=== PATIENT | female | born 1945 | race Caucasian/White ===

== ENCOUNTER → 2017-03-19 | Outpatient (CLI) | payer MEDICARE ==
[~2017-03-19] MED LIST: ACET300T2 PO; ASPI81TA23 PO; FOLI800T PO; INDO75CA3 PO; METH2.5T PO; PROC5TAB PO; REST0.05 EACH EYE
== END ==
LOC: CPRE 09:46
PROVIDERS: ATTEND Orthopaedic Surgery
DX: Z01.818 Encounter for other preprocedural examination (principal)

== ENCOUNTER 2017-04-04 08:30 | Inpatient (IN) | payer MEDICARE ==
[~2017-04-04] VITALS: Ht 157.5 cm; Wt 56.6 kg
--- NOTE | 2017-04-04 09:12 | HHI.DCPOC ---
Discharge Care Plan Diagnosis: (1) Osteoarthritis, shoulder (2) Status post total shoulder arthroplasty Your Health Problems Are: Difficulty with ADL Goals to Promote Your Health * To prevent worsening of your condition and complications * To maintain your health at the optimal level Directions to Meet Your Goals Take your medications as prescribed Follow your dietary instruction Follow activity as directed Keep your appointments as scheduled Take your immunizations and boosters as scheduled If your symptoms worsen call your PCP, if no PCP go to Urgent Care Center or Emergency Room Smoking is Dangerous to Your Health. Avoid second hand smoke Call the 24-hour hour crisis hotline for domestic abuse at Preston Rodriguez Apr 04, 2017 09:12
--- NOTE | 2017-04-04 09:14 | HHI.FF ---
Face to Face Verification Diagnosis: (1) Osteoarthritis, shoulder (2) Status post total shoulder arthroplasty Occupational Therapy Left UE Weight Bearing: WB as tolerated Left UE Range of Motion: Active ROM Nursing Dressing Changes: Do not change dressing Additional Instructions 1st dressing change in the office I have seen patient Vianney Burdick on 04/04/17. My clinical findings support the need for the requested home health care services because: Limited ability to care for self I certify that my clinical findings support that this patient is homebound because: Post-op weakness Preston Rodriguez Apr 04, 2017 09:14
[2017-04-04] MEDS ORDERED: CHLORHEXIDINE GLUCONATE 4% SOLN 120 ML BTL TOPICAL SCH (09:45)
[2017-04-04] MEDS ORDERED: ceFAZolin 2 GM PREMIX 50 ML IV SCH (09:45)
[2017-04-04] MEDS ORDERED: POVIDONE IODINE 7.5% SCRUB 118 ML BOTTLE TOPICAL SCH (09:45)
[2017-04-04] MEDS ORDERED: PRED5TAB PO (09:54)
[2017-04-04] MEDS ORDERED: VITA20003 PO (09:54)
[2017-04-04] MEDS ORDERED: VITA100021 SL (09:54)
[2017-04-04] MEDS ORDERED: CALCTAB19 PO (09:54)
[2017-04-04] MEDS ORDERED: METOPROLOL TARTRATE 25 MG TAB PO PRN (10:00)
[2017-04-04] MEDS ORDERED: SODIUM CHLORID 0.9% 500 ML IV PRN (10:00)
[2017-04-04] MEDS ORDERED: LACTATED RINGER'S 1000 ML IV PRN (10:00)
[2017-04-04] MEDS ORDERED: CHLORHEXIDINE GLUCONATE 2 % 1 PACK (2 CLOTHS) TOPICAL PRN (10:00)
[2017-04-04] MEDS ORDERED: POVIDONE IODINE 5% (ANTISEPSIS KIT) 4 APPLICATIONS EACH NARE PRN (10:00)
[2017-04-04] MEDS ORDERED: MIDAZOLAM HCL 2 MG/2 ML VIAL ONE (10:49)
[2017-04-04] MEDS ORDERED: LIDOCAINE HCL 1% PF 5 ML AMPULE ONE (10:49)
[2017-04-04] MEDS ORDERED: BUPIVACAINE HCL PF 0.5% 30 ML VIAL ONE (10:49)
[2017-04-04] MEDS ORDERED: GENTAMICIN SULFATE 80 MG/2 ML VIAL ONE (11:22)
[2017-04-04] MEDS ORDERED: ROCURONIUM INJ 50 MG/5 ML SYRINGE IV PUSH ONE (12:00)
[2017-04-04] MEDS ORDERED: PROPOFOL 200 MG/20 ML AMP IV ONE (12:00)
[2017-04-04] MEDS ORDERED: NEOSTIGMINE 5 MG/5 ML SYRINGE IV PUSH ONE (12:00)
[2017-04-04] MEDS ORDERED: ONDANSETRON HCL 4 MG/2 ML VIAL IV ONE (12:00)
[2017-04-04] MEDS ORDERED: ePHEDrine/NS 25 MG/5 ML SYRINGE IV ONE (12:00)
[2017-04-04] MEDS ORDERED: PHENYLEPHRINE HCL 10 MG/ML VIAL IV ONE (12:00)
[2017-04-04] MEDS ORDERED: GLYCOPYRROLATE 1 MG/5 ML SYRINGE IV PUSH ONE (12:00)
[2017-04-04] MEDS ORDERED: VANCOMYCIN HCL 1000 MG VIAL ONE (13:17)
[2017-04-04] MEDS ORDERED: SODIUM CHLORIDE 0.9% IV ONE ×2 (13:30→16:30)
[2017-04-04] MEDS ORDERED: TRANEXAMIC ACID IV ONE ×2 (13:30→16:30)
[2017-04-04] MEDS ORDERED: MIDAZOLAM HCL 5 MG/5 ML VIAL IV ONE (13:30)
[2017-04-04] MEDS ORDERED: NALOXONE HCL 0.4 MG/ML AMP IV PUSH PRN (14:45)
[2017-04-04] MEDS ORDERED: MAGNESIUM HYDROXIDE SUSP 30 ML CUP PO PRN (14:45)
[2017-04-04] MEDS ORDERED: diphenhydrAMINE HCL 25 MG CAP PO PRN (14:45)
[2017-04-04] MEDS ORDERED: MORPHINE SULFATE 4 MG/ML INJ IV PUSH PRN (14:45)
[2017-04-04] MEDS ORDERED: Post-op Orders (for Pharmacy) XX ONE (14:45)
[2017-04-04] MEDS ORDERED: MISCELLANEOUS NURSING INFORMATION XX PRN (14:45)
[2017-04-04] MEDS ORDERED: MISCELLANEOUS PHARMACY INFORMATION XX ONE (14:45)
[2017-04-04] MEDS ORDERED: PROCHLORPERAZINE MALEATE 5 MG TAB PO PRN (14:45)
[2017-04-04] MEDS ORDERED: ONDANSETRON HCL 4 MG/2 ML VIAL IVP PRN (14:45)
[2017-04-04] MEDS ORDERED: ACETAMINOPHEN/HYDROcodone 325 MG/5 MG TAB PO PRN (14:45)
--- NOTE | 2017-04-04 14:57 | PD.OP ---
cc: Alfonso Matute MD Operative Report Date of Surgery: Apr 04, 2017 Preoperative Diagnosis: Left shoulder severe osteoarthritis Postoperative Diagnosis: Same Procedure: Left total shoulder arthroplasty Anesthesia: Regional and general Surgeon: Alfonso Matute Medical Records Clerk(s): GENARO Mena The surgical procedure was assisted by my Advanced Registered Nurse Practitioner. My ETHNIC ORIGINS TEACHER presence was necessary throughout this case for the manipulation and positioning of the surgical extremity. My ETHNIC ORIGINS TEACHER was assisting me throughout the duration of this procedure. The skill set of an Advance Registered Nurse Practitioner was medically necessary to complete this procedure. During the surgical case, the technology education teacher was working at the back table and the Advance Registered Nurse Practitioner was directly assisting me. Operation and Findings: IMPLANT DESCRIPTION: 1. Arthrex universe glenoid portal with keel, small 2. Arthrex universe 2 humeral stem, 8 mm 4. Arthrex universe 2 humeral head 44/19 ESTIMATED BLOOD LOSS: 150 cc. JUSTIFICATION FOR PROCEDURE: The patient has end-stage osteoarthritis to the shoulder. There is an attached conservative measures pathway form in the chart that describes the nonoperative measures that were undertaken prior to consideration of surgical management. The patient understood the risks and benefits of surgical management. See my office notes for further details. PROCEDURE: The patient was brought back to the operative theatre. Adequate anesthesia was obtained. The patient received intravenous vancomycin and Ancef. The patient was carefully placed on the operative table. She was placed in a beachchair position. Her head and neck were secured in a neutral position. We made standard incision into the anterior aspect of the shoulder and dissected through the deltopectoral interval. The cephalic vein was protected during the case and remained intact. We identified the clavipectoral fascia. We incised through it. We placed retractors on the lateral aspect of the conjoined tendon. We identified the subscapularis which was in good condition. The supraspinatus tendon was very thinned but intact. We made an incision through the tendinous portion of the subscapularis to enter the joint. We found a small to moderate joint effusion and severe osteoarthritis. We used multiple #2 fiber wires to tag the subscapularis medially. We extended the incision slightly through the rotator interval. We identified that there was a full-thickness tear of the biceps tendon which was retracted. We resected the stump. We placed a guidewire in the proximal portion of the humeral head. This allowed us to put a guide on the head with the appropriate amount of retroversion as determined by the forearm to 90 using the guides. We resected the humeral head at the appropriate inclination of the guide. We used hand reaming of the proximal humerus followed by sequential broaching up to a size 8 which fit very nicely. We removed osteophytes around the humeral head especially posteriorly and inferiorly. We identified the glenoid to expose it. We used a guidewire in the central portion. We sized this to a small. We reamed the glenoid to the appropriate depth. We placed the 2 drill holes off of the guide. This helped discrete the keel using a rongeur and punch. We trialed the glenoid component. We then cemented the glenoid in standard fashion. Excess cement was removed. We placed the final stem in to the humerus. We impacted this. And then we tightened the 2 screws which allow for minor alterations in inclination and version to allow the stem to sit perfectly flat on the previous osteotomy site. We trialed the head. We ended up going with a slightly thicker head which gave excellent stability as tested anteriorly inferiorly and posteriorly. We irrigated and then placed the final head into position. We repaired the subscapularis tendon with the FiberWire's. We also repaired the small interval incision. We closed skin with 2-0 Vicryl followed by Dermabond mesh. Postoperative plan is to follow standard total shoulder replacement protocol. Alfonso Matute MD Apr 04, 2017 14:57
[2017-04-04] MEDS ORDERED: NORC5TAB PO (14:58)
[2017-04-04] MEDS ORDERED: DO NOT ADM ANY ANTICOAGULANT DRUGS PRN (15:22)
--- NOTE | 2017-04-04 16:44 | RADRPT ---
EXAM DATE/TIME: 04/04/2017 15:37 [facility] COMPARISON: No previous studies available for comparison. INDICATIONS : Post op left shoulder. MEDICAL HISTORY : None. SURGICAL HISTORY : None. ENCOUNTER: Initial ACUITY: 1 day PAIN SCORE: Non-responsive. LOCATION: Left shoulder. FINDINGS: Status post shoulder arthroplasty. Anatomic alignment. Lung apex clear CONCLUSION: Anatomic alignment Garcia Emerson MD FACR on April 04, 2017 at 16:41 Board Certified Radiologist. This report was verified electronically.
[2017-04-04 17:30] VITALS: BP 100/73; PULSE 79; RESP 17; TEMP 96.6; O2SAT 100
[2017-04-04] MEDS: ACETAMINOPHEN/HYDROcodone 325 MG/5 MG TAB PO PRN ×2 (18:05→22:20)
[2017-04-04] MEDS: DOCUSATE SODIUM 50 MG/SENNA 8.6 MG TAB PO SCH (19:34)
[2017-04-04] MEDS: INDOMETHACIN 75 MG CONTROLLED RELEASE CAP PO SCH (19:34)
[2017-04-04] MEDS: DEXT 5%-NACL 0.45% 1000 ML INJ 1,000 ML IV SCH (19:35)
[2017-04-04 20:00] VITALS: BP 96/64; PULSE 96; RESP 15; TEMP 98.2; O2SAT 95
[2017-04-04] MEDS ORDERED: CYCLOSPORINE EACH EYE SCH (21:00)
[2017-04-05] VITALS: BP 101/56; PULSE 84; RESP 15; TEMP 100.5; O2SAT 95
[2017-04-05] MEDS: DEXT 5%-NACL 0.45% 1000 ML INJ 1,000 ML IV SCH ×4 (01:00→21:00)
[2017-04-05] MEDS: ACETAMINOPHEN/HYDROcodone 325 MG/5 MG TAB PO PRN ×4 (01:37→17:02)
[2017-04-05 04:00] VITALS: BP 98/53; PULSE 70; RESP 17; TEMP 98.8; O2SAT 96
[2017-04-05 06:37] LABS: AUTOMATED NEUTROPHIL # 7.3 TH/MM3 (1.8-7.7); BASOPHIL % 0.3 % (0.0-2.0); EOSINOPHIL % 0.1 % (0.0-4.0); HEMATOCRIT 31.4 % (35.0-46.0); HEMOGLOBIN 10.6 GM/DL (11.6-15.3); LYMPH % 6.7 % (9.0-44.0); LYMPHOCYTE # 0.6 TH/MM3 (1.0-4.8); MEAN CELL VOLUME 92.6 FL (80.0-100.0); MEAN CORPUSCULAR HEMOGLOBIN 31.2 PG (27.0-34.0); MEAN CORPUSCULAR HGB CONC 33.7 % (32.0-36.0); MEAN PLATELET VOLUME 8.2 FL (7.0-11.0); MONO % 8.1 % (0.0-8.0); MONOCYTE # 0.7 TH/MM3 (0-0.9); NEUT % 84.8 % (16.0-70.0); PLATELET COUNT 255 TH/MM3 (150-450); RED BLOOD COUNT 3.39 MIL/MM3 (4.00-5.30); RED CELL DISTRIBUTION WIDTH 13.9 % (11.6-17.2); WHITE BLOOD COUNT 8.5 TH/MM3 (4.0-11.0)
[2017-04-05 07:31] VITALS: BP 78/54
[2017-04-05] MEDS: INDOMETHACIN 75 MG CONTROLLED RELEASE CAP PO SCH ×2 (08:31→21:08)
[2017-04-05] MEDS: DOCUSATE SODIUM 50 MG/SENNA 8.6 MG TAB PO SCH ×2 (08:31→21:08)
[2017-04-05] MEDS: ASPIRIN EC 81 MG TABEC PO SCH (08:31)
[2017-04-05] MEDS: predniSONE 5 MG TAB PO SCH (08:31)
[2017-04-05] MEDS: MULTIVITAMINS/MINERALS THERAPEUTIC TAB PO SCH (08:31)
[2017-04-05] MEDS: FOLIC ACID 1 MG TAB PO SCH (08:31)
[2017-04-05] MEDS ORDERED: SODIUM CHLORID 0.9% 500 ML INJ 500 ML IV ONE (10:00)
[2017-04-05] MEDS ORDERED: SODIUM CHLORID 0.9% 500 ML INJ 500 ML IV SCH (10:00)
[2017-04-05 11:49] VITALS: BP 101/71; PULSE 70; RESP 18; TEMP 97.6; O2SAT 98
--- NOTE | 2017-04-05 12:44 | PD.ORT.PN ---
Subjective Post Op Day #: 1 Subjective Remarks Patient sitting up in bed with c/o mild to moderate left shoulder pain. Patient has been having some hypotension and has had to have her pain medication held. Objective Vitals Vital Signs Date Time Temp Pulse Resp B/P (MAP) Pulse Ox O2 Delivery O2 Flow Rate FiO2 04/05/17 11:49 97.6 70 18 101/71 (81) 98 04/05/17 07:31 78/54 (62) 04/05/17 04:00 98.8 70 17 98/53 (68) 96 04/05/17 00:00 100.5 84 15 101/56 (71) 95 04/04/17 20:00 98.2 96 15 96/64 (75) 95 04/04/17 17:30 96.6 79 17 100/73 (82) 100 04/04/17 16:58 70 12 105/67 (80) 100 Room Air 04/04/17 16:00 67 12 109/66 (80) 100 Room Air 04/04/17 15:45 64 12 104/66 (79) 100 Room Air 04/04/17 15:30 73 12 108/3 (38) 100 Nasal Cannula 2 04/04/17 15:15 75 12 101/65 (77) 100 Nasal Cannula 2 04/04/17 15:12 97.8 73 12 105/67 (80) 100 Nasal Cannula 2 I/O 04/04/17 04/04/17 04/04/17 04/05/17 04/05/17 04/05/17 07:00 15:00 23:00 07:00 15:00 23:00 Intake Total 1500 ml 1125 ml 1071 ml Output Total 100 ml Balance 1400 ml 1125 ml 1071 ml Intake Oral 600 ml IV Total 525 ml 1071 ml Other 1500 ml Output Estimated Blood Loss 100 ml # Voids 1 Result Diagram: 04/05/17 0408 Procedures Left TSA Objective Remarks Patient's dressing is C/D/I. EpL/APB/CORRINE intact. 2+ radial pulse. Minimal swelling to LUE. + SILT. Assessment & Plan Ortho Post Op Day #: 1 Problem List: Assessment and Plan POD #1: Left TSA 1. WBAT LUE 2. Ice to the left shoulder PRN 3. Continue with sling for support and comfort. 4. Stable for discharge home with home health today if BP is stable with use of pain medication. 5. F/U in the office as previously scheduled with Dr. Matute or GENARO [place]. 6. No dressing changes to the left shoulder until f/u in the office. Preston Rodriguez Apr 05, 2017 12:44
[2017-04-05 17:38] VITALS: BP 115/78
[2017-04-05 20:00] VITALS: BP 106/65; PULSE 75; RESP 16; TEMP 97.7; O2SAT 95
[2017-04-06] VITALS: BP 110/76; PULSE 72; RESP 14; TEMP 97.6; O2SAT 98
[2017-04-06 06:55] LABS: AUTOMATED NEUTROPHIL # 3.8 TH/MM3 (1.8-7.7); BASOPHIL % 0.3 % (0.0-2.0); EOSINOPHIL # 0.1 TH/MM3 (0-0.4); EOSINOPHIL % 1.9 % (0.0-4.0); HEMATOCRIT 30.1 % (35.0-46.0); HEMOGLOBIN 10.3 GM/DL (11.6-15.3); LYMPH % 20.1 % (9.0-44.0); LYMPHOCYTE # 1.1 TH/MM3 (1.0-4.8); MEAN CELL VOLUME 92.9 FL (80.0-100.0); MEAN CORPUSCULAR HEMOGLOBIN 31.9 PG (27.0-34.0); MEAN CORPUSCULAR HGB CONC 34.3 % (32.0-36.0); MONO % 11.7 % (0.0-8.0); MONOCYTE # 0.7 TH/MM3 (0-0.9); PLATELET COUNT 234 TH/MM3 (150-450); RED BLOOD COUNT 3.23 MIL/MM3 (4.00-5.30); RED CELL DISTRIBUTION WIDTH 13.8 % (11.6-17.2); WHITE BLOOD COUNT 5.7 TH/MM3 (4.0-11.0)
[2017-04-06] MEDS: DEXT 5%-NACL 0.45% 1000 ML INJ 1,000 ML IV SCH (07:00)
[2017-04-06 08:00] VITALS: BP 105/73; PULSE 59; RESP 16; TEMP 97.1; O2SAT 96
[2017-04-06] MEDS: ACETAMINOPHEN/HYDROcodone 325 MG/5 MG TAB PO PRN (08:36)
[2017-04-06] MEDS: DOCUSATE SODIUM 50 MG/SENNA 8.6 MG TAB PO SCH (08:36)
[2017-04-06] MEDS: ASPIRIN EC 81 MG TABEC PO SCH (08:36)
[2017-04-06] MEDS: MULTIVITAMINS/MINERALS THERAPEUTIC TAB PO SCH (08:36)
[2017-04-06] MEDS: FOLIC ACID 1 MG TAB PO SCH (08:36)
[2017-04-06] MEDS: predniSONE 5 MG TAB PO SCH (08:36)
[2017-04-06] MEDS: INDOMETHACIN 75 MG CONTROLLED RELEASE CAP PO SCH (08:39)
--- NOTE | 2017-04-06 15:36 | HHI.DS ---
Discharge Summary Admission Date Apr 04, 2017 at 16:00 Discharge Date: Apr 06, 2017 Admitting Diagnosis OA of the left shoulder. Status post shoulder arthroplasty Diagnosis: (1) Osteoarthritis, shoulder Diagnosis: Principal ICD Codes: M19.019 - Primary osteoarthritis, unspecified shoulder (2) Status post total shoulder arthroplasty Diagnosis: Principal ICD Codes: Z96.619 - Presence of unspecified artificial shoulder joint Procedures Left TSA Brief History This is a 71 year old female patient with severe OA of the left shoulder CBC/BMP: 04/06/17 0538 Significant Findings Laboratory Tests Test 04/05/17 04:08 04/06/17 05:38 Red Blood Count 3.39 MIL/MM3 (4.00-5.30) 3.23 MIL/MM3 (4.00-5.30) Hemoglobin 10.6 GM/DL (11.6-15.3) 10.3 GM/DL (11.6-15.3) Hematocrit 31.4 % (35.0-46.0) 30.1 % (35.0-46.0) Neutrophils (%) (Auto) 84.8 % (16.0-70.0) Lymphocytes (%) (Auto) 6.7 % (9.0-44.0) Monocytes (%) (Auto) 8.1 % (0.0-8.0) 11.7 % (0.0-8.0) Lymphocytes # (Auto) 0.6 TH/MM3 (1.0-4.8) PE at Discharge Patient's dressing is C/D/I. EpL/APB/CORRINE intact. 2+ radial pulse. Minimal swelling to LUE. + SILT. Hospital Course The patient was admitted to the hospital with severe OA of the left shoulder to have a left TSA. The patient's surgery went well with no complications. The patient is WBAT on the LUE. The patient use a sling for support and comfort. The patient was discharged home with home health and OT. The patient will f/u in the office as previously scheduled with Dr. Matute or GENARO [place]. Pt Condition on Discharge: Stable Discharge Disposition: Disch w/ Home Health Serv Discharge Instructions Diet Instructions: As Tolerated, No Restrictions Activities You Can Perform: Weight Bearing as Roni Activities to Avoid: Strenuous Activity Follow up Referrals: Orthopedics with Alfonso Matute MD New Medications: Hydrocodone-Acetaminophen (Mobile) 5 Mg-325 Mg Tab 1-2 TAB PO Q4H PRN for PAIN, #60 TAB 0 Refills Continued Medications: Aspirin DR (Aspirin EC) 81 Mg Tabdr 81 MG PO DAILY, TAB 0 Refills Cyclosporine Opth (Restasis Opth) 0.05% Emul 1 DROP EACH EYE DIRECTED for Dry Eye, #1 BOX 0 Refills Folic Acid (Folic Acid) 0.8 Mg Tab 1000 MCG PO DAILY for Nutritional Supplement, TAB 0 Refills Prochlorperazine Maleate (Prochlorperazine Maleate) 5 Mg Tab 5 MG PO Q4H PRN for NAUSEA OR VOMITING, TAB 0 Refills Discontinued Medications: Acetaminophen-Codeine (Acetaminophen-Codeine) 300-30 mg Tab 1 TAB PO Q4H PRN for PAIN SCALE 1 TO 10, TAB 0 Refills Indomethacin ER (Indomethacin ER) 75 Mg Caper 75 MG PO BID, CAP 0 Refills Take with food, milk, or antacids to decrease stomach adverse effects. Methotrexate (Methotrexate) 2.5 Mg Tab 2.5 MG PO Q7D, TAB 0 Refills sunday Preston Rodriguez Apr 06, 2017 15:36
== END 2017-04-06 11:09 | disposition home health service (06) | DRG 483 ==
LOC: EDUNIT# 08:30 → INTOOBSV 08:42 → HSDI 08:42 → OBSVTOIN 16:00 → N06A 17:02
PROVIDERS: ADMIT Orthopaedic Surgery; ATTEND Orthopaedic Surgery
PROC: 0RRK0JZ Replacement of Left Shoulder Joint with Synthetic Substitute, Open Approach (ICD-10-PCS; principal; 2017-04-04 12:01)
DX: M19.012 Primary osteoarthritis, left shoulder (principal); I95.9 Hypotension, unspecified; M06.9 Rheumatoid arthritis, unspecified; M10.9 Gout, unspecified; S46.212A Strain of muscle, fascia and tendon of other parts of biceps, left arm, initial encounter; M25.412 Effusion, left shoulder
CPT/HCPCS: 73030; 85025; 94150; C1776; J0690; J1580; J2250; J2370; J2405; J2710; J3010; J3370; J7040; J7120; J7512